=== PATIENT | female | born 1955 | race Caucasian/White ===

== ENCOUNTER 2021-07-23 21:47 | Emergency (ER) | payer OTHER ==
[~2021-07-23] VITALS: Ht 160 cm; Wt 68.2 kg
[2021-07-23 21:48] VITALS: BP 158/88
== END 2021-07-23 22:15 | disposition home or self-care (01) ==
LOC: EMS 21:52
DX: T54.91XA Toxic effect of unspecified corrosive substance, accidental (unintentional), initial encounter (principal); Y92.89 Other specified places as the place of occurrence of the external cause
CPT/HCPCS: 99281; Z7502